=== PATIENT | female | born 1990 | race African-American/Black ===

== ENCOUNTER 2019-07-25 17:57 | Emergency (ER) | payer OTHER, SELFPAY ==
[2019-07-25 19:01] VITALS: BP 124/85; PULSE 85; RESP 16; TEMP 37.2; O2SAT 98
--- NOTE | 2019-07-25 20:01 | ED.URI ---
HPI - URI/Sore Throat General Chief Complaint: Upper Respiratory Infection Stated Complaint: Sore Throat/Chills Time Seen by Provider: 07/25/19 20:01 Source: patient and RN notes reviewed Mode of arrival: ambulatory Limitations: no limitations History of Present Illness HPI Narrative: 28 year old female who presents to express care with complaints of having severe sore throat since yesterday, states that pain is less today but was 10/10 yesterday. Patient states that she doesn't know if she has had any fever but she has had chills and sweats, admits to some increase in cough and some wheezing does have history of asthma. Patient denies any any productivity of cough or any acute shortness of breath, has taken some Ibuprofen for her discomfort. Patient states that she is concerned she has strep or the flu. MD elicited complaint: cough, sore throat and other (Unknown if fever states has felt hot and cold) Pertinent past history: asthma Onset (ago): day(s) (1) Consistency: constant Severity: moderate Pain scale (0-10): 4 Able to tolerate fluids by mouth: Yes Exacerbating factors: swallowing Relieving factors: nothing Associated symptoms: chills, sore throat and cough Treatments prior to arrival: ibuprofen Related Data Allergies Allergy/AdvReac Type Severity Reaction Status Date / Time Penicillins Allergy Intermediate Swelling Verified 02/22/18 14:01 amoxicillin Allergy Unknown Rash Verified 11/18/18 16:43 Review of Systems Review of Systems: Narrative: CONSTITUTIONAL: Unknown if fever,positive for chills, or sweats. EYES: Denies visual changes, redness, or discharge. ENT: Denies rhinorrhea, congestion, positive sore throat, no otalgia. CARDIOVASCULAR: Denies chest pain, palpitations, or edema. RESPIRATORY:Positive cough denies any acute dyspnea, has history of asthma GASTROINTESTINAL: Denies abdominal pain, nausea, vomiting, or diarrhea. GENITOURINARY: Denies dysuria or hematuria. SKIN: Denies rash or itching. MUSCULOSKELETAL: Denies back pain, joint pain, or myalgia. NEUROLOGIC: Denies headache, numbness, or weakness. PSYCHIATRIC: Denies anxiety or depression. All systems reviewed & are unremarkable except as noted in HPI and below PMFSH Past Medical History Medical History (Updated 08/01/19 @ 21:19 by Heather Fletcher NP) Asthma Surgical History Surgical History (Updated 08/01/19 @ 21:08 by Heather Fletcher NP) Previous section Social History Social History (Updated 08/01/19 @ 21:09 by Heather Fletcher NP) Smoking status: Never smoker Alcohol intake: current Substance use: current Substance use type: marijuana Living arrangements: with family Gender identity (if verbalized by the patient): Female Comments At time of signature, agree with nursing past medical, surgical, social history. There is no relevant family history pertinent to the presenting complaint Exam Narrative: Exam Narrative: GENERAL: Well-appearing, well-nourished, and in no acute distress. HEAD: Normocephalic, atraumatic. EYES: PERRLA and EOMI. ENT: Nares clear, no rhinorrhea or epistaxis. Mucous membranes moist.TM's normal with good light reflex, mild redness to throat with no lesion or exudate, mild tonsil enlargement NECK: Supple.no lymphadenopathy CHEST: scattered wheezes on auscultation. No respiratory distress.SAO2 98% on room air. HEART: Regular rate and rhythm. No murmur heard. Normal peripheral pulses. ABDOMEN: Soft, nontender, nondistended, normal active bowel sounds. EXTREMITIES: Normal range of motion. No edema. SKIN: Warm, dry, no rash. NEURO: No focal deficits. Alert and oriented x3. Course Vital Signs Vital signs: Vital Signs Temperature 37.2 C 07/25/19 19:01 Pulse Rate 85 07/25/19 19:01 Respiratory Rate 16 07/25/19 19:01 Blood Pressure 124/85 07/25/19 19:01 Pulse Oximetry 98 07/25/19 19:01 Temperature 37.2 C 07/25/19 19:01 Pulse Rate 85 07/25/19 19:01 Respiratory Rate 16
== END 2019-07-25 20:20 | disposition home or self-care (01) ==
PROVIDERS: Emergency Provider Registered Nurse
DX: J06.9 Acute upper respiratory infection, unspecified (principal); J02.9 Acute pharyngitis, unspecified; J45.909 Unspecified asthma, uncomplicated
CPT/HCPCS: 87081; 87804; 87880; 99213; G0463

== ENCOUNTER 2020-07-23 13:31 | Outpatient (CLI) | payer OTHER, SELFPAY ==
[2020-07-23 14:15] LABS: Basophils Percent Auto 0.2 % (0.2-1.2); Eosinophils Absolute Auto 0.2 K/mm3 (0-0.3); Eosinophils Percent Auto 1.1 % (0-4.4); Hematocrit 33.8 % (37.0-47.0); Immature Granulocyte Absolute 0.08 K/mm3 (0.00-0.031); Immature Granulocyte Percent A 0.6 % (0-0.5); Lymphocytes Absolute Auto 2.39 K/mm3 (0.9-3.2); Mean Corpuscular HGB Conc 32.5 g/dl (32-36); Mean Corpuscular Hemoglobin 26.7 pg (26-34); Mean Platelet Volume 8.8 fl (7.4-10.4); Monocytes Absolute Auto 0.8 K/mm3 (0.1-0.6); Monocytes Percent Auto 6.1 % (2.6-8.5); Neutrophils Absolute Auto 9.8 K/mm3 (1.3-6.7); Platelet Count Result 281 k/mm3 (150-375); Red Blood Count 4.12 M/mm3 (4.2-5.4); Red Cell Distribution Width 14.2 % (11.5-14.5); White Blood Count 13.3 K/mm3 (4.5-10.0)
[2020-07-23 14:19] LABS: Add Urine Microscopic? YES; Appearance Urine Cloudy (Clear); Bacteria Urine 1+ /hpf; Bilirubin Urine Negative (Negative); Blood Urine Negative (Negative); Color Urine Yellow (Yellow); Glucose Urine UA Negative (Negative); Ketones Urine Negative (Negative); Leukocyte Esterase Ur 3+ LEU/UL (NEGATIVE); Mucus Urine Heavy /lpf; Nitrate Urine Negative (Negative); Protein Urine 1+ mg/dL (Negative); Specific Grav Ur 1.019 (1.001-1.035); Squamous Epithelial Cell Urine Many /hpf (Few); WBC Urine 31-50 /hpf (0-3)
[2020-07-23 15:03] LABS: Thyroid Stimulating Hormone 0.483 uIU/mL (0.465-4.680)
[2020-07-23 15:13] LABS: HIV 1/2 Ab P24 Ag Result Negative (Negative)
[2020-07-23 15:21] LABS: Vitamin D 25 Hydroxy 17.2 ng/mL
[2020-07-23 15:41] LABS: Hepatitis B Surface Antigen Negative (Negative); Rubella IgG Antibody 66.3 IU/ML
[2020-07-23 15:55] LABS: Hepatitis C Virus Antibody Negative (Negative)
[2020-07-24 06:54] LABS: Rapid Plasma Reagin Non-Reactive (NonReactive)
[2020-07-27 08:17] LABS: Hemoglobin 10.8 g/dL (11.7-15.5); MCH 26.8 pg (27.0-33.0); MCV 81.9 FL (80.0-100.0); RDW 14.4 % (11.0-15.0); Red Blood Cell Count 4.03 Mill/uL (3.80-5.10)
== END 2020-07-23 13:32 | disposition home or self-care (01) ==
LOC: ANHLAB 13:33
PROVIDERS: Visit Provider Student in an Organized Health Care Education/Training Program
DX: Z34.91 Encounter for supervision of normal pregnancy, unspecified, first trimester (principal); Z3A.00 Weeks of gestation of pregnancy not specified
CPT/HCPCS: 36415; 81001; 82306; 83021; 84443; 85025; 86592; 86703; 86762; 86787; 86803; 86850; 86900; 86901; 87077; 87086; 87088; 87186; 87340; G0432

== ENCOUNTER 2020-10-20 08:54 | Outpatient (CLI) | payer OTHER, SELFPAY ==
--- NOTE | 2020-10-20 | ECG_ITS ---
Measurements Intervals Lewis Rate: 95 P: 73 UT: 136 QRS: 74 QRSD: 72 T: 52 QT: 344 QTc: 434 Interpretive Statements SINUS RHYTHM BASELINE ARTIFACT- I, II, III, AVR, AVL NORMAL ECG Electronically Signed On 10-20-2020 11:13:28 CDT by Masoud Pineda D.O.
[2020-10-20 10:20] LABS: Basophils Percent Auto 0.3 % (0.2-1.2); Eosinophils Absolute Auto 0.2 K/mm3 (0-0.3); Eosinophils Percent Auto 1.2 % (0-4.4); Hematocrit 30.3 % (37.0-47.0); Hemoglobin 9.7 g/dL (12.0-15.0); Immature Granulocyte Absolute 0.65 K/mm3 (0.00-0.031); Immature Granulocyte Percent A 4.4 % (0-0.5); Lymphocytes Absolute Auto 2.23 K/mm3 (0.9-3.2); Mean Corpuscular Hemoglobin 26.7 pg (26-34); Mean Corpuscular Volume 83.5 fl (80-100); Mean Platelet Volume 8.7 fl (7.4-10.4); Monocytes Absolute Auto 1.1 K/mm3 (0.1-0.6); Monocytes Percent Auto 7.7 % (2.6-8.5); Neutrophils Absolute Auto 10.6 K/mm3 (1.3-6.7); Neutrophils Percent Auto 71.4 % (45.5-73.1); Platelet Count Result 235 k/mm3 (150-375); Red Blood Count 3.63 M/mm3 (4.2-5.4); Red Cell Distribution Width 13.4 % (11.5-14.5); White Blood Count 14.9 K/mm3 (4.5-10.0)
[2020-10-20 10:31] LABS: Glucose 1 Hour PP 50gm Dose 148 mg/dL
[2020-10-20 12:07] LABS: SARS-CoV-2 IgG Non-Reactive (NonReactive)
== END 2020-10-20 08:55 | disposition home or self-care (01) ==
PROVIDERS: Visit Provider Student in an Organized Health Care Education/Training Program
DX: Z34.93 Encounter for supervision of normal pregnancy, unspecified, third trimester (principal); R43.0 Anosmia; R00.2 Palpitations
CPT/HCPCS: 36415; 82947; 85025; 86769; 93005

== ENCOUNTER 2020-10-23 21:22 | Observation (INO) | payer OTHER, SELFPAY ==
[2020-10-23] VITALS (29 sets, daily range): BP systolic 106–113; BP diastolic 56–64; PULSE 84–131; RESP 18; TEMP 36.9; O2SAT 76–100; BMI 26.4
[2020-10-23] MEDS: ONDANSETRON HCL ODT 4 MG TABLET 8 MG PO (22:08)
[2020-10-23] MEDS: ACETAMINOPHEN 500 MG TABLET 1000 MG PO (22:16)
[2020-10-23] MEDS: LACTATED RINGERS 1,000 ML 999 ML IV CONT (22:27)
--- NOTE | 2020-10-23 23:41 | OBADM ---
This patient, Carlos Arrington, admitted to the OB room OB Post 116 for observation. Patient/family oriented to hospital policies and general routines including ID bracelet, bed and alarms, visiting hours, pain management, procedures, bathroom and other care routines, personal items, smoking policy, room service/diet, and visiting hours. Patient/Family are encouraged to report perceived risks to care and to ask questions if they do not understand what they are told or what they should do.
--- NOTE | 2020-11-18 12:50 | PM.OBTRLD ---
OB - Triage/Final Diagnosis Visit Information Comments/Additional reasons for admission: I have assessed the risk for this patient, Carlos Arrington, and determined that she would benefit from observation care. Final Diagnosis (1) Vomiting during , antepartum: Code(s): O21.9 - Vomiting of , unspecified Status: Acute
== END 2020-10-23 23:50 | disposition home or self-care (01) ==
PROVIDERS: Admitting Provider Student in an Organized Health Care Education/Training Program; Visit Provider Student in an Organized Health Care Education/Training Program
DX: O21.0 Mild hyperemesis gravidarum (principal); Z3A.27 27 weeks gestation of pregnancy
CPT/HCPCS: A9270; G0378; G0379; J7120

== ENCOUNTER 2020-12-30 17:39 | Observation (INO) | payer OTHER, SELFPAY ==
[2020-12-30] VITALS (12 sets, daily range): BP systolic 115–167; BP diastolic 62–150; PULSE 86–113
[2020-12-30 20:41] LABS: Glucose Point of Care 99 mg/dl (65-105)
--- NOTE | 2020-12-30 22:45 | PM.IMHP ---
H&P: HPI History of Present Illness Date/Time: 12/30/20 22:45 The patient is a 30yo LMP 03/12/20 currently 37w2d gestation with SURESH 01/18/21. The patient is dated by US on 06/10/20 at 8w gestation. Patient presents to L&D for antepartum admission for noncompliance and abnormal glucose challenge test. Patient has a history of poorly controlled insulin dependent GDM in a previous . During current , her 1 hour GCT was completed on 10/20/20 and was abnormally elevated at 148. Since then and despite several conversations regarding risks of undiagnosed and uncontrolled GDM, patient has been advised numerous times to complete diagnostic GDM testing and has failed to comply on an outpatient basis. Recommendation was made to admit patient to antepartum service for glycemic monitoring and 3 hr glucose tolerance testing. In general, patient reports feeling well today. Reports occasional contractions. Denies any vaginal bleeding or leakage of fluid. Reports good movement. Chief Complaint: Noncompliance Abnormal glucose testing Review of Systems Review of Systems: All systems reviewed & are unremarkable except as noted in HPI and below Constitutional: Constitutional: Reports as per HPI, Reports no additional constitutional complaints, Denies chills, Denies fever(s), Denies headache(s) and Denies night sweats Eyes: Eyes: Reports as per HPI and Reports no additional eye complaints ENT: Reports system reviewed and no additional complaints, except as documented, Reports as per HPI, Reports Normal hearing present and Denies headache(s) Cardiovascular: Cardiovascular: Reports as per HPI, Reports no additional cardiovascular complaints, Denies chest pain and Denies dyspnea Respiratory: Respiratory: Reports as per HPI, Reports no additional respiratory complaints, Denies cough and Denies dyspnea Gastrointestinal: Gastrointestinal: Reports as per HPI, Reports no additional gastrointestinal complaints, Denies abdominal pain, Denies change in bowel habits, Denies change in stool character, Denies nausea and Denies vomiting Genitourinary: Genitourinary: Reports no additional female genitourinary complaints, Reports as per HPI, Denies abnormal vaginal bleeding, Denies genital lesions, Denies hot flashes, Denies dyspareunia, Denies pelvic pain, Denies sexual dysfunction, Denies urinary incontinence, Denies vaginal discharge, Denies vaginal dryness and Denies vaginal odor Musculoskeletal: Musculoskeletal: Reports no additional musculoskeletal complaints and Reports as per HPI Integumentary/Breasts: Skin/Breast: Reports system reviewed and no additional complaints, except as docu, Reports as per HPI, Denies breast pain and Denies nipple discharge Neurologic: Reports system reviewed and no additional complaints, except as documented, Reports as per HPI, Reports Normal hearing present and Denies headache(s) Psychiatric: Psychiatric: Reports no additional psychiatric complaints, Reports as per HPI, Denies anxiety and Denies depression Endocrine: Endocrine: Reports no additional endocrine complaints and Reports as per HPI Hematologic/Lymphatic: Hematologic/Lymphatic: Reports no additional hematologic/lymphatic complaints and Reports as per HPI Allergic/Immunologic: Allergic/Immunologic: Reports no additional allergic/immunologic complaints and Reports as per HPI PMFSH Past Medical History Medical History Asthma History of trichomoniasis Surgical History Surgical History Previous section x1 Family History Family History Father Hypertension Mother Hypertension Social History Social History Smoking status: Never smoker Alcohol intake: current Substance use: current Substance use type: marijuana Gender identity (if ve
[2020-12-31 05:37] LABS: Glucose Point of Care 101 mg/dl (65-105)
[2020-12-31 07:34] LABS: Basophils Absolute Auto 0.1 K/mm3 (0.0-0.1); Basophils Percent Auto 0.5 % (0.2-1.2); Eosinophils Absolute Auto 0.2 K/mm3 (0-0.3); Eosinophils Percent Auto 1.5 % (0-4.4); Hematocrit 29.1 % (37.0-47.0); Immature Granulocyte Absolute 0.37 K/mm3 (0.00-0.031); Immature Granulocyte Percent A 2.5 % (0-0.5); Lymphocytes Absolute Auto 2.43 K/mm3 (0.9-3.2); Lymphocytes Percent Auto 16.5 % (18.3-44.2); Mean Corpuscular HGB Conc 30.9 g/dl (32-36); Mean Corpuscular Hemoglobin 23.4 pg (26-34); Mean Corpuscular Volume 75.8 fl (80-100); Mean Platelet Volume 9.1 fl (7.4-10.4); Monocytes Absolute Auto 1.5 K/mm3 (0.1-0.6); Monocytes Percent Auto 10.4 % (2.6-8.5); Neutrophils Absolute Auto 10.2 K/mm3 (1.3-6.7); Neutrophils Percent Auto 68.6 % (45.5-73.1); Nucleated Red Blood Cells Perc 0.3 % (0.0-0.2); Platelet Count Result 266 k/mm3 (150-375); Red Blood Count 3.84 M/mm3 (4.2-5.4); Red Cell Distribution Width 15.6 % (11.5-14.5); White Blood Count 14.8 K/mm3 (4.5-10.0)
[2020-12-31 07:41] LABS: Glucose Fasting 87 mg/dL
--- NOTE | 2020-12-31 07:50 | PC.NURSE ---
0750--pt. finished 100gm solution for 3hr GTT.
[2020-12-31 07:52] VITALS: BMI 29.9
[2020-12-31 08:22] LABS: HIV 1/2 Ab P24 Ag Result Negative (Negative)
[2020-12-31 09:14] LABS: Glucose 1 Hour 160 mg/dL
[2020-12-31 10:13] LABS: Glucose 2 Hour 127 mg/dL
[2020-12-31 11:08] LABS: Glucose 3 Hour 126 mg/dL
--- NOTE | 2020-12-31 11:17 | PC.NURSE ---
1117--Report of 3hr GTT results to Dr. Steele. Orders to do NST and then can be discharged home.
[2020-12-31 11:28] VITALS: BP 117/64; PULSE 91
[2020-12-31 12:00] VITALS: BP 117/64; PULSE 95
--- NOTE | 2020-12-31 14:14 | PC.NURSE ---
1315--Late decel that had been overlooked while pt. was here was noted after pt. had been discharged home. Phone call to Dr. Steele re: decel and pt. already gone. Strip reviewed per Dr. Steele, orders to call pt. and have her return to hospital for further monitoring and BPP.
--- NOTE | 2020-12-31 14:17 | PC.NURSE ---
1320--Phone call placed to the number we have on file, no answer and automatic recording stating that the phone cannot receive call at this time.
--- NOTE | 2020-12-31 14:18 | PC.NURSE ---
8052--Phone call to Dr. Steele re: inability to reach pt. Orders to continue to try to reach pt.
--- NOTE | 2020-12-31 14:20 | PC.NURSE ---
7723--Phone call to MD office seeking alternate phone number for pt. They state they have no other number on file.
--- NOTE | 2020-12-31 14:21 | PC.NURSE ---
1400--Attempt to reach pt. again, recording that phone cannot receive calls at this time.
--- NOTE | 2020-12-31 14:39 | PC.NURSE ---
1338--Attempt to reach pt. unsuccessful at this time.
--- NOTE | 2020-12-31 18:41 | PC.NURSE ---
1839--Attempt to reach patient via phone, unable to reach or leave message at this time.
--- NOTE | 2021-01-14 14:28 | P.PNOB_ITS ---
OB - Triage/Final Diagnosis Visit Information Comments/Additional reasons for admission: I have assessed the risk for this patient, Carlos Arrington, and determined that she would benefit from observation care. Evaluation Laboratory results: Laboratory Tests 12/30/20 12/31/20 12/31/20 20:37 05:31 07:18 WBC 14.8 H RBC 3.84 L Hgb 9.0 L Hct 29.1 L MCV 75.8 L MCH 23.4 L MCHC 30.9 L RDW 15.6 H Plt Count 266 MPV 9.1 Immature Gran % (Auto) 2.5 H Neut % (Auto) 68.6 Lymph % (Auto) 16.5 L [place] % (Auto) 10.4 H Eos % (Auto) 1.5 Baso % (Auto) 0.5 Lymph # (Auto) 2.43 [place] # (Auto) 1.5 H Eos # (Auto) 0.2 Baso # (Auto) 0.1 Abs Immat Gran (auto) 0.37 H Absolute Neuts (auto) 10.2 H Absolute Nucleated RBC 0.0 Nucleated RBC % 0.3 H POC Capillary Glucose 99 101 Glucose Tolerance HIV 1&2 Ab/P24 Ag 4thGn 12/31/20 12/31/20 07:19 07:20 WBC RBC Hgb Hct MCV MCH MCHC RDW Plt Count MPV Immature Gran % (Auto) Neut % (Auto) Lymph % (Auto) [place] % (Auto) Eos % (Auto) Baso % (Auto) Lymph # (Auto) [place] # (Auto) Eos # (Auto) Baso # (Auto) Abs Immat Gran (auto) Absolute Neuts (auto) Absolute Nucleated RBC Nucleated RBC % POC Capillary Glucose Glucose Tolerance HIV 1&2 Ab/P24 Ag 4thGn Negative Final Diagnosis (1) Abnormal glucose tolerance test: Code(s): R73.09 - Other abnormal glucose Status: Acute
== END 2020-12-31 11:58 | disposition home or self-care (01) ==
PROVIDERS: Admitting Provider Student in an Organized Health Care Education/Training Program; Visit Provider Student in an Organized Health Care Education/Training Program
DX: O99.810 Abnormal glucose complicating pregnancy (principal); Z3A.37 37 weeks gestation of pregnancy
CPT/HCPCS: 36415; 59025; 82948; 82951; 82952; 85025; 86703; G0378; G0379; G0432

== ENCOUNTER 2021-01-07 04:29 | Inpatient (IN) | payer OTHER, SELFPAY ==
[2021-01-07] VITALS (59 sets, daily range): BP systolic 100–133; BP diastolic 58–95; PULSE 63–107; RESP 16–18; TEMP 36.1–36.6; O2SAT 83–100
--- NOTE | 2021-01-07 05:29 | OBADM ---
This patient, Carlos Arrington, admitted to the OB room Labor/Delivery/Recovery 120 for observation. Patient/family oriented to hospital policies and general routines including ID bracelet, bed and alarms, visiting hours, pain management, procedures, bathroom and other care routines, personal items, smoking policy, room service/diet, and visiting hours. Patient/Family are encouraged to report perceived risks to care and to ask questions if they do not understand what they are told or what they should do.
--- NOTE | 2021-01-07 05:32 | PM.IMHP ---
H&P: HPI History of Present Illness Date/Time: 01/07/21 05:32 The patient is a 30yo LMP 03/12/20 currently 38w3d gestation with SURESH 01/18/21. The patient is dated by US on 06/10/20 at 8w gestation. Patient presented to L&D with complaints of contraction and leakage of fluid. Patient reports onset of contractions at approx. 1:00 a.m. Reports increase in frequency and intensity since then. During evaluation, patient was not ruptured, however, was noted to be titus frequently and likely in labor. Denies any vaginal bleeding. Reports good movement. She has a history of previous section x 1. She declines TOLAC and desires repeat section. Chief Complaint: Previous C/S x 1 Labor Review of Systems Review of Systems: All systems reviewed & are unremarkable except as noted in HPI and below Constitutional: Constitutional: Reports as per HPI, Reports no additional constitutional complaints, Denies chills, Denies fever(s), Denies headache(s) and Denies night sweats Eyes: Eyes: Reports as per HPI and Reports no additional eye complaints ENT: Reports system reviewed and no additional complaints, except as documented, Reports as per HPI, Reports Normal hearing present and Denies headache(s) Cardiovascular: Cardiovascular: Reports as per HPI, Reports no additional cardiovascular complaints, Denies chest pain and Denies dyspnea Respiratory: Respiratory: Reports as per HPI, Reports no additional respiratory complaints, Denies cough and Denies dyspnea Gastrointestinal: Gastrointestinal: Reports as per HPI, Reports no additional gastrointestinal complaints, Denies abdominal pain, Denies change in bowel habits, Denies change in stool character, Denies nausea and Denies vomiting Genitourinary: Genitourinary: Reports no additional female genitourinary complaints, Reports as per HPI, Denies abnormal vaginal bleeding, Denies genital lesions, Denies hot flashes, Denies dyspareunia, Denies pelvic pain, Denies sexual dysfunction, Denies urinary incontinence, Denies vaginal discharge, Denies vaginal dryness and Denies vaginal odor Musculoskeletal: Musculoskeletal: Reports no additional musculoskeletal complaints and Reports as per HPI Integumentary/Breasts: Skin/Breast: Reports system reviewed and no additional complaints, except as docu, Reports as per HPI, Denies breast pain and Denies nipple discharge Neurologic: Reports system reviewed and no additional complaints, except as documented, Reports as per HPI, Reports Normal hearing present and Denies headache(s) Psychiatric: Psychiatric: Reports no additional psychiatric complaints, Reports as per HPI, Denies anxiety and Denies depression Endocrine: Endocrine: Reports no additional endocrine complaints and Reports as per HPI Hematologic/Lymphatic: Hematologic/Lymphatic: Reports no additional hematologic/lymphatic complaints and Reports as per HPI Allergic/Immunologic: Allergic/Immunologic: Reports no additional allergic/immunologic complaints and Reports as per HPI PMFSH Past Medical History Medical History Asthma History of trichomoniasis Surgical History Surgical History Previous section x1 Family History Family History Father Hypertension Mother Hypertension Social History Social History Smoking status: Never smoker Alcohol intake: current Substance use: former Substance use type: marijuana Gender identity (if verbalized by the patient): Female Spiritual care concerns: No Meds Home Medications and Allergies Home Medications Medication Instructions Recorded Confirmed Type prenat.vits,kevin,inf-csrd-jqpik 1 tablet PO DAILY 06/24/20 01/07/21 History ferrous sulfate 325 mg (65 mg 325 mg PO DAILY #90 tablet 10/21/20 01/07/21 Rx
[2021-01-07] MEDS: LACTATED RINGERS 1,000 ML 125 ML IV CONT ×2 (07:05→08:22)
[2021-01-07 07:17] LABS: Basophils Absolute Auto 0.1 K/mm3 (0.0-0.1); Basophils Percent Auto 0.4 % (0.2-1.2); Eosinophils Absolute Auto 0.2 K/mm3 (0-0.3); Eosinophils Percent Auto 1.3 % (0-4.4); Hematocrit 29.7 % (37.0-47.0); Hemoglobin 9.2 g/dL (12.0-15.0); Immature Granulocyte Absolute 0.54 K/mm3 (0.00-0.031); Immature Granulocyte Percent A 3.2 % (0-0.5); Lymphocytes Absolute Auto 2.46 K/mm3 (0.9-3.2); Lymphocytes Percent Auto 14.6 % (18.3-44.2); Mean Corpuscular Hemoglobin 23.1 pg (26-34); Mean Corpuscular Volume 74.4 fl (80-100); Mean Platelet Volume 9.4 fl (7.4-10.4); Monocytes Absolute Auto 1.8 K/mm3 (0.1-0.6); Monocytes Percent Auto 10.7 % (2.6-8.5); Neutrophils Absolute Auto 11.8 K/mm3 (1.3-6.7); Neutrophils Percent Auto 69.8 % (45.5-73.1); Nucleated Red Blood Cells Absolute Auto 0.1 K/mm3 (0.0-0.012); Nucleated Red Blood Cells Perc 0.5 % (0.0-0.2); Platelet Count Result 283 k/mm3 (150-375); Red Blood Count 3.99 M/mm3 (4.2-5.4); Red Cell Distribution Width 15.6 % (11.5-14.5); White Blood Count 16.9 K/mm3 (4.5-10.0)
--- NOTE | 2021-01-07 07:31 | WPDANESEPPF ---
Anes - Initial Pre Proc Eval Date/Time: 01/07/21 07:31 Surgeon: Renae Steele MD Pre Op Diagnosis: R/O ROM Patient Data Age: 30 Gender: F Height: 1.52 m Weight: Last Vital Signs Temp 36.6 C 01/07/21 04:50 Pulse 96 01/07/21 06:15 Resp 16 01/07/21 04:50 BP 120/80 01/07/21 06:15 Pulse Ox 100 01/07/21 06:16 Allergies Allergy/AdvReac Type Severity Reaction Status Date / Time Penicillins Allergy Intermediate Swelling Verified 12/30/20 14:51 amoxicillin Allergy Unknown Rash Verified 12/30/20 14:51 Home Medications Medication Instructions Recorded Confirmed Type prenat.vits,kevin,jxl-[id number]-xiosw 1 tablet PO DAILY 06/24/20 01/07/21 History ferrous sulfate 325 mg (65 mg 325 mg PO DAILY #90 tablet 10/21/20 01/07/21 Rx iron) tablet Laboratory Tests 01/07/21 01/07/21 07:08 07:08 WBC 16.9 K/mm3 H K/mm3 (4.5-10.0) RBC 3.99 M/mm3 L M/mm3 (4.2-5.4) Hgb 9.2 g/dL L g/dL (12.0-15.0) Hct 29.7 % L % (37.0-47.0) MCV 74.4 fl L fl (80-100) MCH 23.1 pg L pg (26-34) MCHC 31.0 g/dl L g/dl (32-36) RDW 15.6 % H % (11.5-14.5) Plt Count 283 k/mm3 k/mm3 (150-375) MPV 9.4 fl fl (7.4-10.4) Immature Gran % (Auto) 3.2 % H % (0-0.5) Neut % (Auto) 69.8 % % (45.5-73.1) Lymph % (Auto) 14.6 % L % (18.3-44.2) Baker % (Auto) 10.7 % H % (2.6-8.5) Eos % (Auto) 1.3 % % (0-4.4) Baso % (Auto) 0.4 % % (0.2-1.2) Lymph # (Auto) 2.46 K/mm3 K/mm3 (0.9-3.2) Baker # (Auto) 1.8 K/mm3 H K/mm3 (0.1-0.6) Eos # (Auto) 0.2 K/mm3 K/mm3 (0-0.3) Baso # (Auto) 0.1 K/mm3 K/mm3 (0.0-0.1) Abs Immat Gran (auto) 0.54 K/mm3 H K/mm3 (0.00-0.031) Absolute Neuts (auto) 11.8 K/mm3 H K/mm3 (1.3-6.7) Absolute Nucleated RBC 0.1 K/mm3 H K/mm3 (0.0-0.012) Nucleated RBC % 0.5 % H % (0.0-0.2) RPR Pending Patient hx anesthesia problems: none Family hx anesthesia problems: none PMFSH Past Medical History Medical History Asthma History of trichomoniasis Surgical History Surgical History Previous section x1 Family History Family History Father Hypertension Mother Hypertension Social History Social History Smoking status: Never smoker Alcohol intake: current Substance use: former Substance use type: marijuana Gender identity (if verbalized by the patient): Female Spiritual care concerns: No Anes - Eval Final PreProcedure Day of Procedure 01/07/21 07:31 Patient weight: normal Heart: regular rate and rhythm Lungs: clear to auscultation Airway: Mallampati scale class II Neurological: alert and oriented Last oral intake: >/= 8 hours ASA classification: II Emergent: no Anesthetic plan: proceed Anesthesia type and monitoring: regional spinal and standard monitoring Informed Consent: The patient's anesthetic plan and its attendant risks and benefits were discussed with the patient/family/POA. Questions were solicited and answers provided to the satisfaction of the patient/family/POA.
[2021-01-07 08:04] LABS: Amphetamine Screen Urine Negative (Negative); Barbiturate Screen Urine Negative (Negative); Benzodiazepines Screen Urine Negative (Negative); Cannabinoid Screen Urine Positive (Negative); Cocaine Screen Urine Negative (Negative); Methadone Screen Urine Negative (Negative); Opiate Screen Urine Negative (Negative); Phencyclidine Screen Urine Negative (Negative)
--- NOTE | 2021-01-07 08:35 | WPDHPUPDATE1 ---
History and Physical Update Update Date/Time: 01/07/21 08:35 History and Physical has been reviewed, including an updated exam of the patient. There are NO changes in the patient's condition. Risks, benefits, and alternatives have been discussed and questions answered. Patient agrees to proceed with procedure.
[2021-01-07] MEDS: ceFAZolin 2 GM/D5W 50 ML 2 GM/50 ML BAG IVPB (09:04)
[2021-01-07 09:29] LABS: Rapid Plasma Reagin Non-Reactive (NonReactive)
[2021-01-07] MEDS: KETOROLAC 30 MG/ML VIAL (*BKC) IV PUSH ×3 (09:40→22:37)
--- NOTE | 2021-01-07 10:23 | PM.OBPRVD ---
OB - Delivery Note Procedure Delivery date: 01/07/21 Procedure: Procedures Operation Date: 01/07/21 09:00 <No data on this case meets the specified criteria> events: Previous Delivery monitor: external FHT and external uterine Route of delivery: Specimen: Yes (cord blood and cord gases) Quantitative Blood Loss (ml): 610 Anesthesia type: Spinal Disposition: PACU Complications: No immediate complications Baby Date of : 01/07/21 Time of : 09:35 Weeks of gestation at delivery: 38 (38.3) Infant gender: Male Weight (pounds): 7 Weight (ounces): 13 presentation: vertex Placenta delivery description: Manual Removal cord vessel description: 3 Vessels score one minute: 9 score five minutes: 9
--- NOTE | 2021-01-07 10:26 | W.PM.PROC2 ---
Procedure Note - Detailed Date of Procedure 01/07/21 Pre-op Diagnosis IUP at 38w3d gestation Previous section x 1 Active labor Declines TOLAC Post-op Diagnosis same Procedure Performed Repeat low transverse section via Pfannenstiel Surgeon Renae Steele MD Personal Property Appraiser Ciera Vera Anesthesia spinal Findings Live male in cephalic presentation, apgars 9/9, weighing 7 lbs. 13 oz., meconium stained amniotic fluid, normal appearing uterus, ovaries, and fallopian tubes bilaterally Description of Procedure The patient was taken to the operating room, where she self-transferred to the operating room table. Spinal anesthesia was administered and found to be adequate. The patient was placed in dorsal supine position with a leftward tilt. She was prepped and draped in the usual sterile fashion. Spinal anesthesia was tested and found to be adequate. A Pfannenstiel skin incision was made with a scalpel and carried through to underlying layer of fascia with the Bovie. The fascia was incised in the midline and the incision was extended laterally with the use of forceps and Martinez scissors. The inferior aspect of the fascial incision was grasped with James clamps, elevated, and the underlying rectus muscle were dissected off with Martinez scissors. Attention was then turned to the superior aspect of the fascial incision, which in a similar manner, was grasped with James clamps, elevated, and the underlying rectus muscles were also dissected off with Martinez scissors. The rectus muscles were in the midline and the peritoneal cavity was entered bluntly. This incision was extended superiorly and inferiorly with good visualization of the bladder and care was taken to avoid blood vessels. A bladder blade was inserted. A low-transverse uterine incision was made with a scalpel. This incision was extended laterally with bandage scissors. Amniotomy was performed. Meconium stained amniotic fluid was noted. The 's head was grasped and gently guided to the level of the uterine incision. The 's head was delivered easily and atraumatically without difficulty followed by the neck, shoulders, and rest of body with gentle fundal pressure. The 's nose and mouth were suctioned bulb suction. The was crying spontaneously. The cord was clamped and cut and the infant was handed off to waiting nursing staff. A segment of cord was collected for cord gases. Cord blood was also collected. The placenta was then delivered manually with gentle uterine massage. Uterus was exteriorized and cleared of all clots and debris. The uterine incision was reapproximated with 0 Vicryl in a running, locked fashion. A second imbricating layer using 0 Monocryl performed. Excellent hemostasis was noted. On inspection, the uterus, ovaries, and fallopian tubes appeared to be normal bilaterally. The uterus was replaced into the abdominal cavity. The gutters were cleared of all clots and debris. The uterine incision was inspected again and noted to be hemostatic. Hemaderm was applied across the uterine incision. Interceed was also applied across the uterine incision and anterior surface of the uterus. The fascia was then closed with 0 Vicryl in a running fashion. The subcutaneous layer was irrigated with water. Pinpoint areas of bleeding were made hemostatic with Bovie. The subcutaneous layer was reapproximated with 2-0 plain and the skin was then closed with 4-0 Monocryl in a subcuticular fashion. The skin was cleansed and dried. Dermaflex skin adhesive was applied across the incision. A pressure dressing was also applied. The remainder the patient was cleansed and dried. The patient was transferred to the recovery room in stable condition. All sponge, lap, and instrument counts were correct at the end of the procedure x3. The patient tolerated the procedure well. Estimated Blood Loss 610 IV Fluids 1,400 Urine Output 150 Drains Yes (lezama catheter with 150cc clear urine at e
--- NOTE | 2021-01-07 12:39 | OBPPTRN ---
Patient transferred to post room # 292 via stretcher. Support person present and in open crib. Oriented to unit, room, information board, rooming in, admission packet and security measures. PT transferred to bed via maxi air without difficulty. PT received instructions per one to one discussion, mom baby care guide and demonstration. No barriers to learning identified and pt received instructions as the only recipient. Patient verbalizes understanding.
[2021-01-07] MEDS: OXYTOCIN 30 UNITS/NS 500 ML 30 UNITS/500 ML BAG 125 UNITS IV CONT (13:00)
[2021-01-07] MEDS: LANOLIN (LANSINOH) 7.5 GM CREAM 1 APPLIC TOPICAL (15:57)
[2021-01-07] MEDS: POLYSACCHARIDE IRON COMPLEX 150 MG CAPSULE PO (15:58)
[2021-01-07] MEDS: SIMETHICONE 80 MG TAB.CHEW PO (15:58)
[2021-01-07] MEDS: DOCUSATE SODIUM 100 MG CAPSULE PO (15:58)
[2021-01-07] MEDS: oxyCODONE/ACETAMINOPHEN (*CRX) 5-325 MG TABLET 1 TABLET PO (16:16)
[2021-01-07] MEDS: diphenhydrAMINE HCl INJ 50 MG/ML VIAL 12.5 MG IV PUSH (18:24)
[2021-01-07] MEDS: DEXTROSE 5%/0.45% SOD CHL 1,000 ML 125 ML IV CONT (19:25)
[2021-01-07] MEDS: oxyCODONE/ACETAMINOPHEN (*CRX) 5-325 MG TABLET 2 TABLET PO (22:38)
[2021-01-08] MEDS: diphenhydrAMINE HCl INJ 50 MG/ML VIAL 12.5 MG IV PUSH (01:17)
[2021-01-08 01:23] VITALS: BP 128/70; PULSE 83; RESP 17; TEMP 36.2; O2SAT 100
[2021-01-08] MEDS: KETOROLAC 30 MG/ML VIAL (*BKC) IV PUSH ×2 (04:41→11:59)
[2021-01-08] MEDS: oxyCODONE/ACETAMINOPHEN (*CRX) 5-325 MG TABLET 2 TABLET PO ×4 (04:43→19:59)
[2021-01-08 04:50] VITALS: BP 114/67; PULSE 89; RESP 14; TEMP 36.5; O2SAT 100
[2021-01-08 05:45] LABS: Basophils Percent Auto 0.2 % (0.2-1.2); Eosinophils Absolute Auto 0.2 K/mm3 (0-0.3); Hematocrit 26.3 % (37.0-47.0); Hemoglobin 8.2 g/dL (12.0-15.0); Immature Granulocyte Absolute 0.23 K/mm3 (0.00-0.031); Immature Granulocyte Percent A 1.3 % (0-0.5); Lymphocytes Absolute Auto 1.79 K/mm3 (0.9-3.2); Lymphocytes Percent Auto 9.8 % (18.3-44.2); Mean Corpuscular HGB Conc 31.2 g/dl (32-36); Mean Corpuscular Hemoglobin 23.2 pg (26-34); Mean Corpuscular Volume 74.5 fl (80-100); Mean Platelet Volume 9.5 fl (7.4-10.4); Monocytes Absolute Auto 2.1 K/mm3 (0.1-0.6); Monocytes Percent Auto 11.5 % (2.6-8.5); Neutrophils Absolute Auto 13.9 K/mm3 (1.3-6.7); Neutrophils Percent Auto 76.2 % (45.5-73.1); Nucleated Red Blood Cells Absolute Auto 0.1 K/mm3 (0.0-0.012); Nucleated Red Blood Cells Perc 0.3 % (0.0-0.2); Platelet Count Result 251 k/mm3 (150-375); Red Blood Count 3.53 M/mm3 (4.2-5.4); Red Cell Distribution Width 15.6 % (11.5-14.5); White Blood Count 18.2 K/mm3 (4.5-10.0)
[2021-01-08 08:00] VITALS: BP 119/70; PULSE 75; RESP 16; TEMP 36.7; O2SAT 97
--- NOTE | 2021-01-08 09:24 | P.PNOB_ITS ---
OB - PN: Subj Subjective Date/time seen: 01/08/21 09:24 Patient doing well this morning. Pain well controlled with medication. Denies any headache, chest pain, shortness of breath, nausea, or vomiting. Tolerating PO diet. Ambulating without difficulty. Voiding well. Passage of minimal flatus. OB - PN: Obj Data Labs CBC & Chem 7: 01/08/21 04:59 Labs: Laboratory Results - last 24 hr 01/07/21 01/07/21 01/08/21 07:08 07:08 04:59 WBC 18.2 H RBC 3.53 L Hgb 8.2 L Hct 26.3 L MCV 74.5 L MCH 23.2 L MCHC 31.2 L RDW 15.6 H Plt Count 251 MPV 9.5 Immature Gran % (Auto) 1.3 H Neut % (Auto) 76.2 H Lymph % (Auto) 9.8 L [place] % (Auto) 11.5 H Eos % (Auto) 1.0 Baso % (Auto) 0.2 Lymph # (Auto) 1.79 [place] # (Auto) 2.1 H Eos # (Auto) 0.2 Baso # (Auto) 0.0 Abs Immat Gran (auto) 0.23 H Absolute Neuts (auto) 13.9 H Absolute Nucleated RBC 0.1 H Nucleated RBC % 0.3 H RPR Non-reactive Blood Type B Positive Antibody Screen Negative OB - PN A/P Assessment and Plan (1) Delivery by section at 37-39 weeks of gestation due to labor: Code(s): O75.82 - Onset (spontaneous) of labor after 37 completed weeks of gestation but before 39 completed weeks gestation, with delivery by (planned) section Status: Acute Assessment and Plan: POD#1 doing well continue routine postoperative care encourage ambulation and use of IS Time Spent With Patient Time: Total time spent is greater than 50% in coordination of care (as documente d) at patient's floor/unit and/or counseling patient: Exam Const: General: cooperative, healthy appearing, comfortable and no acute distress GI: Inspection: non-distended GI Palp: Yes Soft to palpation and Yes Tenderness to palpation present (GI) (appropriately tender) Other: fundus firm just below umbilicus Extrem: Right lower extremity: no edema Left lower extremity: no edema Other: no calf tenderness
--- NOTE | 2021-01-08 10:11 | WPDANLDPN2 ---
Anes-Prog Note L&D Date/Time: 01/08/21 10:11 Comfortable throughout: section Neuraxial method: spinal Epidural/Spinal procedure site: clean & non-tender Neuro status: Neuro function grossly intact. Cardiovascular status: normal Respiratory status: normal Airway patency: baseline Mental status: baseline Post-Op hydration status: normal Vital Signs: Last Vital Signs Temp 98.1 F 01/08/21 08:00 Pulse 75 01/08/21 08:00 Resp 16 01/08/21 08:00 BP 119/70 01/08/21 08:00 Pulse Ox 97 01/08/21 08:00 Pain score (VAS): 06/14 I/O: Intake & Output 01/07/21 01/08/21 01/08/21 23:59 07:59 15:59 Output Total 250 2181 400 Balance -250 -4228 -572 Post-procedural complaints: none Patient feedback: Patient satisfied with anesthetic care.
--- NOTE | 2021-01-08 10:12 | WPDANLDNPN2 ---
Anes-Prog Note L&D-Neuraxial Date/Time: 01/08/21 10:12 Neuraxial medications: intrathecal PF morphine Opiod-related complaints: none Patient feedback: Patient satisfied with post-operative pain management.
[2021-01-08 10:30] VITALS: PULSE 75; RESP 16; O2SAT 97
[2021-01-08] MEDS: POLYSACCHARIDE IRON COMPLEX 150 MG CAPSULE PO ×2 (10:37→15:56)
[2021-01-08] MEDS: SIMETHICONE 80 MG TAB.CHEW PO ×3 (10:37→20:04)
[2021-01-08] MEDS: DOCUSATE SODIUM 100 MG CAPSULE PO ×2 (10:38→15:55)
[2021-01-08] MEDS: MULTIVIT/MIN/PREN/FOL AC/IRON TABLET 1 TAB PO (10:38)
--- NOTE | 2021-01-08 14:15 | PC.NURSE ---
Observed mother is able to independently latch with appropriate positioning/alignment. She denies any nipple discomfort, is feeding as required and waking infant to feed if needed. has had at least 8 effective feedings in the past 24 hours, and is currently meeting outcomes for weight, output, jaundice and feeding frequencies. Mother states she feels confident to continue effective at home. Reviewed transition to breast milk, signs of adequate intake, and engorgement/relief. Instructed to call ICP if intake/output less than required. Reviewed regular medications mother is taking. Information provided per Geena. Reviewed community resources on the [facility] website and in the Mom/Baby guide. Information on outpatient services provided. Mother has no further questions at this time. Assisted mother with a pump thru her insurance.
[2021-01-08] MEDS: IBUPROFEN 600 MG TABLET PO (20:00)
[2021-01-08 20:45] VITALS: BP 126/77; PULSE 84; TEMP 36.6; O2SAT 100
--- NOTE | 2021-01-08 20:45 | PC.NURSE ---
Patient viewed the discharge video Mother & Baby Care, The First Two Weeks online. Patient was given the opportunity and encouraged to ask questions. Patient verbalized understanding of information shared and has been given the mother/baby guide for home reference.
[2021-01-09] MEDS: oxyCODONE/ACETAMINOPHEN (*CRX) 5-325 MG TABLET 2 TABLET PO ×5 (00:24→23:48)
[2021-01-09] MEDS: IBUPROFEN 600 MG TABLET PO ×4 (03:38→23:49)
[2021-01-09 08:00] VITALS: BMI 28.0
[2021-01-09 08:10] VITALS: BP 108/82; PULSE 81; RESP 18; TEMP 36.2; O2SAT 100
[2021-01-09] MEDS: POLYSACCHARIDE IRON COMPLEX 150 MG CAPSULE PO ×2 (09:03→17:42)
[2021-01-09] MEDS: DOCUSATE SODIUM 100 MG CAPSULE PO ×2 (09:03→17:42)
[2021-01-09] MEDS: MULTIVIT/MIN/PREN/FOL AC/IRON TABLET 1 TAB PO (09:03)
[2021-01-09] MEDS: SIMETHICONE 80 MG TAB.CHEW PO (09:10)
--- NOTE | 2021-01-09 10:38 | PM.OBPNVD ---
OB - PN: Subj Subjective Date/time seen: 01/09/21 10:38 Patient doing well. Pain well controlled with medication. Patient denies any headache, chest pain, shortness of breath, nausea, or vomiting. Tolerating regular p.o. diet. Ambulating without difficulty. Voiding well. Passing flatus. Minimal lochia. OB - PN: Obj Data Labs CBC & Chem 7: 01/08/21 04:59 OB - PN A/P Assessment and Plan (1) Delivery by section at 37-39 weeks of gestation due to labor: Code(s): O75.82 - Onset (spontaneous) of labor after 37 completed weeks of gestation but before 39 completed weeks gestation, with delivery by (planned) section Status: Acute Assessment and Plan: PPD#2 Doing well Continue routine postoperative care Encourage ambulation use of IS Anticipate discharge home tomorrow Time Spent With Patient Time: Total time spent is greater than 50% in coordination of care (as documented) at patient's floor/unit and/or counseling patient: Exam Const: General: cooperative, healthy appearing, comfortable and no acute distress GI: Inspection: non-distended GI Palp: Yes Soft to palpation and No Tenderness to palpation present (GI) Other: inc c/d/i Extrem: Right lower extremity: no edema Left lower extremity: no edema Other: no calf tenderness
--- NOTE | 2021-01-09 13:28 | PCCCNOTE ---
Care Coordination met with pt. this morning to discuss discharge planning. Pt.'s current D/C plan is to return home with her parents and daughter. Pt. states she has local family and friend support to assist with her baby. Pt. confirms she has everything she needs to safely bring baby home. Pt. has a car seat for staff to examine. Pt. will continue to breast feed at time of D/C and states she is in the process of applying for WIC. Pt. denies any concerns about discharging home with baby. Pt. denies any prior DCFS cases. Pt. did test positive for Marijuana, she states this was to assist her with the . Baby was not tested. Pt. has been provided resources for new parents. No further need for CC services.
[2021-01-09] MEDS: ONDANSETRON HCL ODT 4 MG TABLET PO (15:20)
[2021-01-09] MEDS: oxyCODONE/ACETAMINOPHEN (*CRX) 5-325 MG TABLET 1 TABLET PO (19:27)
[2021-01-09 19:48] VITALS: BP 127/82; PULSE 77; RESP 18; TEMP 36.7; O2SAT 100
[2021-01-10] MEDS: oxyCODONE/ACETAMINOPHEN (*CRX) 5-325 MG TABLET 2 TABLET PO ×2 (05:19→10:22)
[2021-01-10] MEDS: IBUPROFEN 600 MG TABLET PO (05:19)
[2021-01-10] MEDS: ONDANSETRON HCL ODT 4 MG TABLET PO (06:38)
[2021-01-10 08:06] VITALS: BP 146/79; PULSE 87; RESP 18; TEMP 37; O2SAT 100
--- NOTE | 2021-01-10 08:23 | P.PNOB_ITS ---
OB - PN: Subj Subjective Date/time seen: 01/10/21 08:23 Patient doing well this morning. Pain well controlled medication. Patient denies headache, chest pain, shortness of breath, nausea, or vomiting. Tolerating regular p.o. diet. Ambulating without difficulty. Voiding well. Passing flatus. OB - PN: Obj Data Labs CBC & Chem 7: 01/08/21 04:59 OB - PN A/P Assessment and Plan (1) Delivery by section at 37-39 weeks of gestation due to labor: Code(s): O75.82 - Onset (spontaneous) of labor after 37 completed weeks of gestation but before 39 completed weeks gestation, with delivery by (planned) section Status: Acute Assessment and Plan: POD#3 doing well dc home in stable condition emergency precautions reviewed f/u in office in 2 weeks for postoperative check Time Spent With Patient Time: Total time spent is greater than 50% in coordination of care (as documented) at patient's floor/unit and/or counseling patient: Exam Const: General: cooperative, healthy appearing, comfortable and no acute distr ess GI: Inspection: non-distended GI Palp: Yes Soft to palpation and No Tenderness to palpation present (GI) Other: fundus firm below umbilicus; inc c/d/i Extrem: Right lower extremity: no edema Left lower extremity: no edema Other: no calf tenderness
--- NOTE | 2021-01-10 08:25 | P.DS_ITS ---
DS: Admitting Diagnosis Admitting Diagnosis Previous section Labor OB - DS: Summary OB Procedures : None OB Procedures Intrapartum: OB Procedures: : None Peripartum Data Procedures: Procedures Operation Date: 01/07/21 09:00 Actual Procedure Side Surgeon p Section Renae Steele MD Time Spent with Patient Time attestation: Total time spent providing and/or coordinating discharge services: Discharge Plan Discharge Attending physician on discharge: Renae Steele Discharging Clinician: Renae Steele Anticipated Discharge Date/Time: 01/10/21 08:25 Patient Disposition: Home, Self-Care Activity: may drive after 2 weeks, as tolerated and pelvic rest Diet: regular Discharge Instructions: Call office ([phone]) to schedule the following appointments: 1. Postoperative/wound check in 2 weeks. 2. visit in 4-6 weeks. You may take Ibuprofen 600mg every 6 hours as needed for pain. I have sent a prescription for a stronger pain medication, [place], to your pharmacy. You may take this as prescribed for breakthrough pain (pain that is not controlled with Ibuprofen). No driving for at least two weeks. You also may not drive while taking narcotics. Pain medication may make you constipated. It may be helpful to take an zyvb-[id number] stool softener, such as Colace and/or Senokot, along with the pain medication to help lessen constipation. Call office or go to ED for pain not controlled with medication, headache, chest pain, shortness of breath, fever, chills, persistent nausea or vomiting, severe abdominal pain, heavy vaginal bleeding >2 pads/hour, foul vaginal discharge or odor, any redness near incision, severe pain, pus or drainage from incision site, or problems with your breasts. Patient Instructions: Antibiotic Form Stand Alone Forms: General Discharge Information Follow-up/Referrals: Renae Steele MD [Physician] - Discharge Medications: New oxycodone-acetaminophen 5-325 mg Tablet 1 - 2 tablet PO Q4-6H PRN (Reason: Pain Rated 4-6) Qty: 30 RF: 0 Continued prenat.vits,kevin,isn-ugho-defjk Tablet 1 tablet PO DAILY RF: 0 ferrous sulfate 325 mg (65 mg iron) tablet 325 mg PO DAILY Qty: 90 RF: 0 Date of admission: 01/07/21 04:29 Primary Care Provider: PHYSICIAN,CLINIC COORDINATOR Admitting Provider: Renae Steele Attending physician on admission: Renae Steele Condition: Stable
[2021-01-10] MEDS: POLYSACCHARIDE IRON COMPLEX 150 MG CAPSULE PO (10:21)
[2021-01-10] MEDS: MULTIVIT/MIN/PREN/FOL AC/IRON TABLET 1 TAB PO (10:21)
[2021-01-10] MEDS: DOCUSATE SODIUM 100 MG CAPSULE PO (10:22)
[2021-01-13 13:36] VITALS: BP 136/88; PULSE 84; RESP 20; TEMP 36.9; O2SAT 100
== END 2021-01-10 10:38 | disposition home or self-care (01) | DRG 540 ==
LOC: ANHLDR 05:13 → ANHOB2 13:08
PROVIDERS: Admitting Provider Student in an Organized Health Care Education/Training Program; Visit Provider Student in an Organized Health Care Education/Training Program
PROC: 10D00Z1 Extraction of Products of Conception, Low, Open Approach (ICD-10-PCS; CPT 59514; principal; 2021-01-07 09:00)
DX: O34.211 Maternal care for low transverse scar from previous cesarean delivery (principal); O99.324 Drug use complicating childbirth; F12.90 Cannabis use, unspecified, uncomplicated; O77.0 Labor and delivery complicated by meconium in amniotic fluid; Z3A.38 38 weeks gestation of pregnancy; Z37.0 Single live birth
CPT/HCPCS: 36415; 80307; 84112; 85025; 86592; 86850; 86900; 86901; A9270; C1765; J0131; J0690; J1200; J1885; J2274; J2405; J2590; J7120

== ENCOUNTER 2021-01-21 15:31 | Observation (INO) | payer OTHER, SELFPAY ==
[2021-01-21] VITALS (27 sets, daily range): BP systolic 111–177; BP diastolic 66–128; PULSE 70–96; TEMP 36.7
[2021-01-21 16:14] LABS: Basophils Absolute Auto 0.1 K/mm3 (0.0-0.1); Basophils Percent Auto 0.5 % (0.2-1.2); Eosinophils Absolute Auto 0.4 K/mm3 (0-0.3); Eosinophils Percent Auto 3.8 % (0-4.4); Hematocrit 33.8 % (37.0-47.0); Hemoglobin 9.9 g/dL (12.0-15.0); Immature Granulocyte Absolute 0.05 K/mm3 (0.00-0.031); Immature Granulocyte Percent A 0.5 % (0-0.5); Lymphocytes Absolute Auto 2.62 K/mm3 (0.9-3.2); Lymphocytes Percent Auto 25.4 % (18.3-44.2); Mean Corpuscular HGB Conc 29.3 g/dl (32-36); Mean Corpuscular Hemoglobin 22.3 pg (26-34); Mean Corpuscular Volume 76.1 fl (80-100); Monocytes Absolute Auto 0.9 K/mm3 (0.1-0.6); Monocytes Percent Auto 8.3 % (2.6-8.5); Neutrophils Absolute Auto 6.3 K/mm3 (1.3-6.7); Neutrophils Percent Auto 61.5 % (45.5-73.1); Platelet Count Result 546 k/mm3 (150-375); Red Blood Count 4.44 M/mm3 (4.2-5.4); Red Cell Distribution Width 17.7 % (11.5-14.5); White Blood Count 10.3 K/mm3 (4.5-10.0)
[2021-01-21 16:24] LABS: Creatinine Urine 173.5 mg/dL; Total Protein Urine Random 18 mg/dL
[2021-01-21 16:27] LABS: Lactate Dehydrogenase 676 U/L (313-618)
[2021-01-21 16:29] LABS: Alanine Aminotransferase 13 U/L (4-35); Albumin Level 3.8 g/dL (3.5-5.1); Alkaline Phosphatase 84 U/L (38-126); Anion Gap 5 mmol/L (8-16); Aspartate Amino Transferase 20 U/L (14-36); Bilirubin,Total 0.4 mg/dL (0.2-1.3); Blood Urea Nitrogen 11 mg/dL (7-17); Calcium 8.8 mg/dL (8.4-10.2); Carbon Dioxide 26 mmol/L (22-30); Chloride 109 mmol/L (98-107); Estimated Glomerular Filt Rate > 60; Glucose 92 mg/dL (65-110); Potassium 3.8 mmol/L (3.4-5.0); Sodium 140 mmol/L (137-145); Uric Acid 5.3 mg/dL (2.5-7.5)
[2021-01-21 16:33] LABS: Amphetamine Screen Urine Negative (Negative); Barbiturate Screen Urine Negative (Negative); Benzodiazepines Screen Urine Negative (Negative); Cannabinoid Screen Urine Positive (Negative); Cocaine Screen Urine Negative (Negative); Methadone Screen Urine Negative (Negative); Opiate Screen Urine Negative (Negative); Phencyclidine Screen Urine Negative (Negative)
--- NOTE | 2021-01-21 16:41 | PC.NURSE ---
called,orders received for procardia 60mg xl now for bp's.
[2021-01-21 16:42] LABS: Hypochromasia 1+ (NORMAL); Platelet Estimate Adequate (Adequate)
[2021-01-21 16:43] LABS: Anisocytosis 2+ (NORMAL)
[2021-01-21] MEDS: NIFEdipine 30 MG TAB.ER.24 60 MG PO (16:51)
--- NOTE | 2021-01-21 18:09 | PC.NURSE ---
called with elevated bp's, orders received for HCTZ 25mg po
[2021-01-21] MEDS: ACETAMINOPHEN 500 MG TABLET 1000 MG PO (18:36)
[2021-01-21] MEDS: hydroCHLOROthiazide 25 MG TABLET PO (18:53)
[2021-01-21] MEDS: NIFEdipine 10 MG CAPSULE PO (21:43)
[2021-01-22] VITALS (24 sets, daily range): BP systolic 90–137; BP diastolic 55–84; PULSE 78–108; RESP 14–16; TEMP 36.6–36.7; BMI 27.3
[2021-01-22] MEDS: ACETAMINOPHEN 500 MG TABLET 1000 MG PO (05:22)
[2021-01-22] MEDS: NIFEdipine 30 MG TAB.ER.24 60 MG PO (09:04)
--- NOTE | 2021-01-22 13:42 | PM.GYNPNOP ---
TNT POWDER WORKER - A/P Time Spent With Patient Time: Total time spent is greater than 50% in coordination of care (as documented) at patient's floor/unit and/or counseling patient: Time with patient: less than 15 minutes TNT POWDER WORKER- PN:Nura Post-Op Subjective Date/time seen: 01/22/21 13:42 Patient doing well. Seen at bedside this AM. Reported feeling better today. Sitting up in bed eating breakfast. Denies any headache, chest pain, SOB, N/V, visual disturbances, or abdominal pain. Yesterday, patient was started on Procardia XL 60mg. BP, however, was still elevated and patient was given Procardia IR 10mg x 1 dose as well as HCTZ 25mg x 1 dose. She was observed throughout the evening and this morning and BP has remained within normal limits. Decision made to discharge patient home in stable condition. Rx for Procardia XL 60mg QD and HCTZ 25mg QD sent to pharmacy along with Rx for BP cuff. Patient instructed to take BP at home twice per day and record in log. Advised to contact office for SBP >160 or DBP >110. Emergency precautions reviewed. F/U in office in 1 week for BP check. All questions and concerns addressed. TNT POWDER WORKER - PN: Obj Data Vital Signs Vital Signs: Vital Signs - 24 hr 01/21/21 15:50 01/21/21 16:01 01/21/21 16:15 Temperature Pulse Rate 86 89 81 Respiratory Rate Blood Pressure 162/99 H 158/84 H 160/128 H Blood Pressure [Right Arm] 01/21/21 16:19 01/21/21 16:26 01/21/21 16:31 Temperature 36.7 C Pulse Rate 75 76 Respiratory Rate Blood Pressure 152/94 H 156/91 H Blood Pressure [Right Arm] 01/21/21 16:46 01/21/21 17:00 01/21/21 17:31 Temperature Pulse Rate 73 77 87 Respiratory Rate Blood Pressure 156/94 H 163/93 H 154/102 H Blood Pressure [Right Arm] 01/21/21 17:56 01/21/21 18:00 01/21/21 18:31 Temperature Pulse Rate 75 82 Respiratory Rate Blood Pressure 169/102 H 154/92 H Blood Pressure [Right Arm] 162/99 H 01/21/21 19:00 01/21/21 19:31 01/21/21 20:01 Temperature Pulse Rate 81 79 75 Respiratory Rate Blood Pressure 175/95 H 161/100 H 156/96 H Blood Pressure [Right Arm] 01/21/21 20:31 01/21/21 20:46 01/21/21 21:01 Temperature Pulse Rate 75 74 73 Respiratory Rate Blood Pressure 177/95 H 175/96 H 158/87 H Blood Pressure [Right Arm] 01/21/21 21:31 01/21/21 21:44 01/21/21 21:51 Temperature Pulse Rate 70 70 82 Respiratory Rate Blood Pressure 173/97 H 161/93 H 151/102 H Blood Pressure [Right Arm] 01/21/21 22:01 01/21/21 22:21 01/21/21 22:41 Temperature Pulse Rate 72 77 77 Respiratory Rate Blood Pressure 155/96 H 151/93 H 131/74 Blood Pressure [Right Arm] 01/21/21 23:00 01/21/21 23:20 01/21/21 23:40 Temperature Pulse Rate 96 86 87 Respiratory Rate Blood Pressure 120/75 115/66 111/70 Blood Pressure [Right Arm] 01/22/21 00:01 01/22/21 00:21 01/22/21 00:40 Temperature Pulse Rate 99 78 80 Respiratory Rate Blood Pressure 121/80 111/63 117/69 Blood Pressure [Right Arm] 01/22/21 01:00 01/22/21 01:20 01/22/21 02:01 Temperature Pulse Rate 81 83 108 H Respiratory Rate Blood Pressure 120/75 111/65 118/72 Blood Pressure [Right Arm] 01/22/21 02:21 01/22/21 02:40 01/22/21 03:00 Temperature Pulse Rate 107 H 100 104 H Respiratory Rate Blood Pressure 120/71 111/64 113/72 Blood Pressure [Right Arm] 01/22/21 03:21 01/22/21 03:40 01/22/21 04:00 Temperature Pulse Rate 103 H 88 90 Respiratory Rate Blood Pressure 118/60 98/57 L 98/56 L Blood Pressure [Right Arm] 01/22/21 04:07 01/22/21 04:20 01/22/21 04:40 Temperature 36.7 C Pulse Rate 95 95 Respiratory Rate 16 Blood Pressure 101/63 112/71 Blood Pressure [Right Arm] 01/22/21 05:00 01/22/21 05:20 01/22/21 05:40 Temperature Pulse Rate 88 89 87 Respiratory Rate Blood Pressure 109/69 101/56 L 102/56 L Blood Pressure [Right Arm] 01/22/21 06:01 01/22/21 06:20 01/22/21 06:40 Temperature
--- NOTE | 2021-01-22 13:52 | PM.OBTRLD ---
OB - Triage/Final Diagnosis Visit Information Comments/Additional reasons for admission: I have assessed the risk for this patient, Carlos Arrington, and determined that she would benefit from observation care. Evaluation Laboratory results: Laboratory Tests 01/21/21 01/21/21 01/21/21 15:48 15:48 15:48 WBC 10.3 H RBC 4.44 Hgb 9.9 L Hct 33.8 L MCV 76.1 L MCH 22.3 L MCHC 29.3 L RDW 17.7 H Plt Count 546 H D MPV 9.0 Immature Gran % (Auto) 0.5 Neut % (Auto) 61.5 Lymph % (Auto) 25.4 [place] % (Auto) 8.3 Eos % (Auto) 3.8 Baso % (Auto) 0.5 Lymph # (Auto) 2.62 [place] # (Auto) 0.9 H Eos # (Auto) 0.4 H Baso # (Auto) 0.1 Abs Immat Gran (auto) 0.05 H Absolute Neuts (auto) 6.3 Absolute Nucleated RBC 0.0 Nucleated RBC % 0.0 Platelet Estimate Adequate Hypochromasia 1+ Anisocytosis 2+ Sodium 140 Potassium 3.8 Chloride 109 H Carbon Dioxide 26 Anion Gap 5 L BUN 11 Creatinine 0.80 Estim Creat Clear Calc Not Reportable Estimated GFR > 60 Glucose 92 Uric Acid 5.3 Calcium 8.8 Total Bilirubin 0.4 AST 20 ALT 13 Alkaline Phosphatase 84 Lactate Dehydrogenase Total Protein 7.0 Albumin 3.8 U Random Total Protein 18 Urine Creatinine 173.5 Protein/Creat Ratio 2 0.10 Urine Opiates Screen Urine Methadone Screen Ur Barbiturates Screen Ur Phencyclidine Scrn Ur Amphetamine Screen U Benzodiazepines Scrn Urine Cocaine Screen U Cannabinoids Screen 01/21/21 01/21/21 15:48 15:48 WBC RBC Hgb Hct MCV MCH MCHC RDW Plt Count MPV Immature Gran % (Auto) Neut % (Auto) Lymph % (Auto) [place] % (Auto) Eos % (Auto) Baso % (Auto) Lymph # (Auto) [place] # (Auto) Eos # (Auto) Baso # (Auto) Abs Immat Gran (auto) Absolute Neuts (auto) Absolute Nucleated RBC Nucleated RBC % Platelet Estimate Hypochromasia Anisocytosis Sodium Potassium Chloride Carbon Dioxide Anion Gap BUN Creatinine Estim Creat Clear Calc Estimated GFR Glucose Uric Acid Calcium Total Bilirubin AST ALT Alkaline Phosphatase Lactate Dehydrogenase 676 H Total Protein Albumin U Random Total Protein Urine Creatinine Protein/Creat Ratio 2 Urine Opiates Screen Negative Urine Methadone Screen Negative Ur Barbiturates Screen Negative Ur Phencyclidine Scrn Negative Ur Amphetamine Screen Negative U Benzodiazepines Scrn Negative Urine Cocaine Screen Negative U Cannabinoids Screen Positive A Vital signs: Vital Signs - 24 hr 01/21/21 15:50 01/21/21 16:01 01/21/21 16:15 Temperature Pulse Rate 86 89 81 Respiratory Rate Blood Pressure 162/99 H 158/84 H 160/128 H Blood Pressure [Right Arm] 01/21/21 16:19 01/21/21 16:26 01/21/21 16:31 Temperature 36.7 C Pulse Rate 75 76 Respiratory Rate Blood Pressure 152/94 H 156/91 H Blood Pressure [Right Arm] 01/21/21 16:46 01/21/21 17:00 01/21/21 17:31 Temperature Pulse Rate 73 77 87 Respiratory Rate Blood Pressure 156/94 H 163/93 H 154/102 H Blood Pressure [Right Arm] 01/21/21 17:56 01/21/21 18:00 01/21/21 18:31 Temperature Pulse Rate 75 82 Respiratory Rate Blood Pressure 169/102 H 154/92 H Blood Pressure [Right Arm] 162/99 H 01/21/21 19:00 01/21/21 19:31 01/21/21 20:01 Temperature Pulse Rate 81 79 75 Respiratory Rate Blood Pressure 175/95 H 161/100 H 156/96 H Blood Pressure [Right Arm] 01/21/21 20:31 01/21/21 20:46 01/21/21 21:01 Temperature Pulse Rate 75 74 73 Respiratory Rate Blood Pressure 177/95 H 175/96 H 158/87 H Blood Pressure [Right Arm] 01/21/21 21:31 01/21/21 21:44 01/21/21 21:51 Temperature Pulse Rate 70 70 82 Respiratory Rate Blood Pressure 173/97 H 161/93 H 151/102 H Blood Pressure [Right Arm] 01/21/21 22:01 01/21/21
== END 2021-01-22 13:00 | disposition home or self-care (01) ==
LOC: ANHOBOP 15:38 → ANHOBPP 15:48
PROVIDERS: Admitting Provider Student in an Organized Health Care Education/Training Program; Visit Provider Student in an Organized Health Care Education/Training Program
DX: O16.5 Unspecified maternal hypertension, complicating the puerperium (principal)
CPT/HCPCS: 36415; 80053; 80307; 82570; 83615; 84156; 84550; 85025; A9270; G0378; G0379

== ENCOUNTER 2025-01-24 17:54 | Emergency (ER) | payer OTHER, SELFPAY ==
--- OUTSIDE RECORDS SUMMARY | 2012-02-08 19:00 | XMS_ITS | Continuity of Care Document ---
Author Organization [facility] Address [address] [place] [address] Phone Care Team Providers Care Occ Therapy Asst Name Role Phone Unavailable Unavailable Unavailable Advance Directives Directive Yes / No Effective Date File Name No Information Encounters Encounter Description Practice Location Reason(s) For Visit Diagnoses Date Provider Providers Copied on Encounter [facility], [address] [facility], [place], [place], [id number], [place] tel:[phone] [facility] No Information 6201 2 No Information Referring Provider: MILTON AUGUSTE, [address] [place] [address],, [place], [address]. tel:[phone] Family History Family Member Type Diagnosis Age At Onset No Information Payers Payer name Insurance type Covered democrat ID Authoriza tistef(s) [facility] [id number] Social History Type Description Quantity Date Captured Comments Sex Female Smoking Status No Information Chief Complaint And Reason For Visit No Information History Of Present Illness Encounter Date Complaint History Of Prese nt Illness No Information Instructions Date Instruction Additional Infor mation No Information Assessments Type Assessment Date No Information
[2025-01-24] VITALS (18 sets, daily range): BP systolic 112–139; BP diastolic 60–111; PULSE 89–108; RESP 11–25; TEMP 38.1–39.2; O2SAT 95–100
--- NOTE | ~2025-01-24 | XR_ITS ---
EXAMINATION: XR chest 2V 01/24/2025 18:28 INDICATION: Chest pain PROCEDURE: 2 view chest COMPARISON: No prior studies for comparison. FINDINGS: The lungs are clear. The cardiomediastinal silhouette is within normal limits. There are no pleural effusions. There is no pneumothorax suspected. IMPRESSION: 1: NO ACUTE CARDIOPULMONARY DISEASE. Reviewed, dictated and finalized at location O.
--- NOTE | 2025-01-24 17:58 | ECG_ITS ---
Test Date: 2025-01-24 18:02:03 Measurements Intervals [place] Rate: 100 P: 65 DE: 147 QRS: 60 QRSD: 65 T: 39 QT: 299 QTc: 387 Interpretive Statements SINUS TACHYCARDIA DELAYED PRECORDIAL R/S TRANSITION BORDERLINE ECG No previous ECG available for comparison Electronically Signed On 01-24-2025 20:31:25 CDT by Masoud Pineda D.O.
[2025-01-24 18:26] LABS: Hematocrit 31.5 % (37.0-47.0); Hemoglobin 10.3 g/dL (12.0-15.0); Immature Granulocyte Percent A 0.5 % (0-0.5); Lymphocytes Absolute Auto 1.25 K/mm3 (0.9-3.2); Mean Corpuscular HGB Conc 32.7 g/dl (32-36); Mean Corpuscular Hemoglobin 26.6 pg (26-34); Mean Corpuscular Volume 81.4 fl (80-100); Nucleated Red Blood Cells Absolute Auto 0.000 K/mm3 (0.0-0.012); Nucleated Red Blood Cells Perc 0.0 % (0.0-0.2); Platelet Count Result 332 k/mm3 (150-375); Red Blood Count 3.87 M/mm3 (4.2-5.4); White Blood Count 18.2 K/mm3 (4.5-10.0)
[2025-01-24 18:42] LABS: Alanine Aminotransferase 24 U/L (6-35); Albumin Level 3.7 g/dL (3.5-5.1); Alkaline Phosphatase 46 U/L (38-126); Anion Gap 5 mmol/L (4-12); Aspartate Amino Transferase 35 U/L (14-36); Bilirubin,Total 0.3 mg/dL (0.2-1.3); Blood Urea Nitrogen 8 mg/dL (7-17); Calcium 8.8 mg/dL (8.4-10.2); Carbon Dioxide 24 mmol/L (22-30); Chloride 106 mmol/L (98-107); Estimated CRCL calculation 100 ml/min; Estimated Glomerular Filt Rate > 60; Glucose 90 mg/dL (65-110); Lipase 29 U/L (23-300); Potassium 3.9 mmol/L (3.4-5.0); Sodium 135 mmol/L (137-145); Total Protein 6.9 g/dL (6.3-8.2)
--- NOTE | 2025-01-24 18:43 | ED_ITS ---
HPI - Chest Pain General Chief Complaint: Chest Pain Stated Complaint: CP, nausea, chills, body aches Time Seen by Provider: 01/24/25 18:27 Related Data Home Medications ?Medication ?Instructions ?Recorded ?Confirmed ?Last Taken ?Type prenat.vits,kevin,[id number] 1 tablet PO DAILY 06/2401/22/21 12/29/20 History Allergies Allergy/AdvReac Type Severity Reaction Status Date / Time Penicillins Allergy Intermediate Swelling Verified 02/24/21 13:10 amoxicillin Allergy Unknown Rash Verified 02/24/21 13:10 PMF Past Medical History Medical History Asthma History of trichomoniasis Surgical History Surgical History Previous section x2 Family History Family History Father Hypertension Mother Hypertension Social History Social History Smoking status: Never smoker Alcohol intake: current Substance use: former Substance use type: marijuana Living arrangements: with family Gender identity (if verbalized by the patient): Female Spiritual care concerns: No Course Vital Signs Vital signs: Vital Signs Temperature 102.6 F H 01/24/25 17:59 Pulse Rate 104 H 01/24/25 17:59 Respiratory Rate 13 01/24/25 17:59 Blood Pressure 125/78 01/24/25 17:59 Pulse Oximetry 100 01/24/25 17:59 Temperature 102.6 F H 01/24/25 17:59 Pulse Rate 104 H 01/24/25 17:59 Respiratory Rate 13 01/24/25 17:59 Blood Pressure 125/78 01/24/25 17:59 Pulse Oximetry 100 01/24/25 17:59 MDM - Chest Pain Lab Data 01/24/25 18:21 01/24/25 18:21 Labs: Lab Results 01/24/25 Range/Units 18:21 WBC Pending RBC Pending Hgb Pending Hct Pending MCV Pending MCH Pending MCHC Pending RDW Pending Plt Count Pending MPV Pending Immature Gran % (Auto) Pending Neut % (Auto) Pending Lymph % (Auto) Pending [place] % (Auto) Pending Eos % (Auto) Pending Baso % (Auto) Pending Lymph # (Auto) Pending [place] # (Auto) Pending Eos # (Auto) Pending Baso # (Auto) Pending Abs Immat Gran (auto) Pending Absolute Neuts (auto) Pending Absolute Nucleated RBC Pending Nucleated RBC % Pending PT Pending INR Pending APTT Pending Sodium 135 L (137-145) mmol/L Potassium 3.9 (3.4-5.0) mmol/L Chloride 106 (98-107) mmol/L Carbon Dioxide 24 (22-30) mmol/L Anion Gap 5 (4-12) mmol/L BUN 8 (7-17) mg/dL Creatinine 0.50 L (0.7-1.0) mg/dL Estim Creat Clear Calc 100 ml/min Estimated GFR > 60 (59 - ) Glucose 90 (65-110) mg/dL Calcium 8.8 (8.4-10.2) mg/dL Total Bilirubin 0.3 (0.2-1.3) mg/dL AST 35 (14-36) U/L ALT 24 (6-35) U/L Alkaline Phosphatase 46 (38-126) U/L Troponin I Pending Total Protein 6.9 (6.3-8.2) g/dL Albumin 3.7 (3.5-5.1) g/dL Lipase 29 (23-300) U/L Discharge Plan Discharge Patient Language: Urdu Prescriptions: No Action nifedipine [Procardia XL] 60 mg tablet extended release 24hr 60 mg PO DAILY Qty: 30 0RF hydrochlorothiazide 25 mg tablet 25 mg PO DAILY Qty: 30 0RF (DME) blood pressure monitor Kit See Rx Instructions .Route Qty: 1 0RF Rx Instructions: As directed prenat.vits,kevin,[id number] Tablet 1 tablet PO DAILY ferrous sulfate 325 mg (65 mg iron) tablet 325 mg PO DAILY Qty: 90 0RF levonorgestrel [Plan B One-Step] 1.5 mg tablet 1.5 mg PO ONCE Qty: 1 0RF Rx Instructions: as a single dose Follow-up/Referrals: PHYSICIAN,COLLECTION SPECIALIST [Primary Care Provider, Internal Medicine]
--- NOTE | 2025-01-24 18:43 | ED.SKABFB ---
HPI - Skin/Abscess/Foreign Bdy General Chief complaint: Chest Pain Stated complaint: CP, nausea, chills, body aches Time Seen by Provider: 01/24/25 18:27 History of Present Illness HPI narrative: This is a 34-year-old female with history of asthma who presents to the ED for body aches, fevers, chills. Patient states that yesterday, she had abscess to her left maxillary gums that she drained herself. When she woke up this morning, she was having generalized body aches worse to the chest and abdomen. She went to work today but thinks that she overdosed herself. She was concerned that she may have sepsis. Has had nausea but no vomiting. Related Data Home Medications ?Medication ?Instructions ?Recorded ?Confirmed ?Last Taken ?Type prenat.vits,kevin,[id number] 1 tablet PO DAILY 06/24/20 01/22/21 12/29/20 History Allergies Allergy/AdvReac Type Severity Reaction Status Date / Time Penicillins Allergy Intermediate Swelling Verified 02/24/21 13:10 amoxicillin Allergy Unknown Rash Verified 02/24/21 13:10 Review of Systems Review of Systems: Gen.: As per HPI Eyes: Denies eye pain or visual change ENT: Denies congestion Respiratory: Denies shortness of breath or cough CV: As per HPI GI: As per HPI denies burning, urgency, frequency or hematuria Musculoskeletal: Denies back pain or muscle pain Neuro: Denies numbness, tingling, weakness or focal weakness Skin: Denies rash Except as documented, all other systems reviewed and negative PMFSH Past Medical History Medical History History of trichomoniasis Asthma Surgical History Surgical History Previous section x2 Family History Family History Father Hypertension Mother Hypertension Social History Social History Smoking status: Never smoker Alcohol intake: current Substance use: former Substance use type: marijuana Living arrangements: with family Gender identity (if verbalized by the patient): Female Spiritual care concerns: No Exam Narrative: APPEARANCE: No acute distress, nontoxic, resting in bed EYES: EOMI HEENT: Normocephalic, atraumatic, OMM RESPIRATORY: No respiratory distress Clear to auscultation bilaterally with no rhonchi wheezing or rales. CARDIOVASCULAR: Tachycardic, regular rhythm without murmurs rubs or gallops. ABDOMINAL: Soft, mild diffuse tenderness without rebound or guarding. MUSCULOSKELETAl: Moves all extremities. No clubbing, cyanosis or edema. NEURO: Awake and alert. Following commands, speech normal, no focal deficits SKIN:: Warm, dry. No rashes lesions or abrasions PSYCHIATRIC: Normal affect/mood, Course Vital Signs Vital signs: Vital Signs Temperature 102.6 F H 01/24/25 17:59 Pulse Rate 104 H 01/24/25 17:59 Respiratory Rate 13 01/24/25 17:59 Blood Pressure 125/78 01/24/25 17:59 Pulse Oximetry 100 01/24/25 17:59 Temperature 100.5 F H 01/24/25 19:46 Pulse Rate 89 01/24/25 21:45 Respiratory Rate 21 H 01/24/25 21:45 Blood Pressure 112/60 01/24/25 19:17 Pulse Oximetry 100 01/24/25 19:00 MDM - Skin/Abscess/Foreign Bdy MDM Narrative Medical decision making narrative: 34-year-old female that presented to the ED for diffuse body aches and a left maxillary dental abscess that drained on its own. Initial evaluation, patient was in no acute distress, nontoxic appearing, febrile to 102.6. Heart and lungs are clear. Suspect that she is having a generalized reaction related to her abscess. Chest x-ray showed no acute process. She had leukocytosis of 18.2. Mild anemia of 10.3. CMP without significant abnormalities. CRP elevated at 6.5. UA clear. Patient was given clindamycin and 2 L NS bolus. She is given Toradol and Tylenol with improvement of her symptoms. Patient will be given a prescription for clindamycin. She was given a referral to [facility] to establish care. Patient was agreeable to this plan. Given strict return precautions. Differential Diagnosis Differential diagnosis: Likely other (CAP, dental abscess, viral syndrome) Medical Records Attestation: I reviewed the patient's medical records. Lab Data Attestation: I reviewed the patient's lab results. 01/24/25 18:21 01/24/25 18:21 Labs: Lab Results 01/24/25 01/24/25 01/24/25 Range/Units 18:21 18:55 19:46 WBC 18.2 H (4.5-10.0) K/mm3 RBC 3.87 L (4.2-5.4) M/mm3 Hgb 10.3 L (12.0-15.0) g/dL Hct 31.5 L (37.0-47.0) % MCV 81.4 (80-100) fl MCH 26.6 (26-34) pg MCHC 32.7 (32-36) g/dl RDW 14.3 (11.5-14.5) % Plt Count 332 (150-375) k/mm3 MPV 9.1 (7.4-10.4) fl Immature Gran % (Auto) 0.5 (0-0.5) % Neut % (Auto) 86.3 H (45.5-73.1) % Lymph % (Auto) 6.9 L (18.3-44.2) % Griggs % (Auto) 5.8 (2.6-8.5) % Eos % (Auto) 0.4 (0-4.4) % Baso % (Auto) 0.1 L (0.2-1.2) % Lymph # (Auto) 1.25 (0.9-3.2) K/mm3 Griggs # (Auto) 1.1 H (0.1-0.6) K/mm3 Eos # (Auto) 0.1 (0-0.3) K/mm3 Baso # (Auto) 0.0 (0.0-0.1) K/mm3 Abs Immat Gran (auto) 0.09 H (0.00-0.031) K/mm3 Absolute Neuts (auto) 15.8 H (1.3-6.7) K/mm3 Absolute Nucleated RBC 0.000 (0.0-0.012) K/mm3 Nucleated RBC % 0.0 (0.0-0.2) % PT 14.0 (11.1-14.7) Seconds INR 1.1 APTT 29.5 (22.3-36.8) Seconds Sodium 135 L (137-145) mmol/L Potassium 3.9 (3.4-5.0) mmol/L Chloride 106 (98-107) mmol/L Carbon Dioxide 24 (22-30) mmol/L Anion Gap 5 (4-12) mmol/L BUN 8 (7-17) mg/dL Creatinine 0.50 L (0.7-1.0) mg/dL Estim Creat Clear Calc 100 ml/min Estimated GFR > 60 (59 - ) Glucose 90 (65-110) mg/dL Lactic Acid 1.2 (0.7-2.0) mmol/L Calcium 8.8 (8.4-10.2) mg/dL Total Bilirubin 0.3 (0.2-1.3) mg/dL AST 35 (14-36) U/L ALT 24 (6-35) U/L Alkaline Phosphatase 46 (38-126) U/L Troponin I < 0.012 (0.000-0.034) ng/mL C-Reactive Protein 6.5 H (<1.0) mg/dL Total Protein 6.9 (6.3-8.2) g/dL Albumin 3.7 (3.5-5.1) g/dL Lipase 29 (23-300) U/L Urine Color Yellow (Yellow) Urine Appearance Clear (Clear) Urine pH 8.0 (5.0-9.0) Ur Specific Sunshine 1.005 (1.001-1.035) Urine Protein Negative (Negative) mg/dL Urine Glucose (UA) Negative (Negative) mg/dL Urine Ketones Negative (Negative) mg/dL Ur Blood (Man) Negative (Negative) Urine Nitrate Negative (Negative) Urine Bilirubin Negative (Negative) Urine Urobilinogen 0.2 (<2.0) mg/dL Leukocyte Esterase Rfl Negative (Negative) PONCHO/UL POC Urine HCG, Qual (Negative) 01/24/25 Range/Units 19:57 WBC (4.5-10.0) K/mm3 RBC (4.2-5.4) M/mm3 Hgb (12.0-15.0) g/dL Hct (37.0-47.0) % MCV (80-100) fl MCH (26-34) pg MCHC (32-36) g/dl RDW (11.5-14.5) % Plt Count (150-375) k/mm3 MPV (7.4-10.4) fl Immature Gran % (Auto) (0-0.5) % Neut % (Auto) (45.5-73.1) % Lymph % (Auto) (18.3-44.2) % Griggs % (Auto) (2.6-8.5) % Eos % (Auto) (0-4.4) % Baso % (Auto) (0.2-1.2) % Lymph # (Auto) (0.9-3.2) K/mm3 Griggs # (Auto) (0.1-0.6) K/mm3 Eos # (Auto) (0-0.3) K/mm3 Baso # (Auto) (0.0-0.1) K/mm3 Abs Immat Gran (auto) (0.00-0.031) K/mm3 Absolute Neuts (auto) (1.3-6.7) K/mm3 Absolute Nucleated RBC (0.0-0.012) K/mm3 Nucleated RBC % (0.0-0.2) % PT (11.1-14.7) Seconds INR APTT (22.3-36.8) Seconds Sodium (137-145) mmol/L Potassium (3.4-5.0) mmol/L Chloride (98-107) mmol/L Carbon Dioxide (22-30) mmol/L Anion Gap (4-12) mmol/L BUN (7-17) mg/dL Creatinine (0.7-1.0) mg/dL Estim Creat Clear Calc ml/min Estimated GFR (59 - ) Glucose (65-110) mg/dL Lactic Acid (0.7-2.0) mmol/L Calcium (8.4-10.2) mg/dL Total Bilirubin (0.2-1.3) mg/dL AST (14-36) U/L ALT (6-35) U/L Alkaline Phosphatase (38-126) U/L Troponin I (0.000-0.034) ng/mL C-Reactive Protein (<1.0) mg/dL Total Protein (6.3-8.2) g/dL Albumin (3.5-5.1) g/dL Lipase (23-300) U/L Urine Color (Yellow) Urine Appearance (Clear) Urine pH (5.0-9.0) Ur Specific Sunshine (1.001-1.035) Urine Protein (Negative) mg/dL Urine Glucose (UA) (Negative) mg/dL Urine Ketones (Negative) mg/dL Ur Blood (Man) (Negative) Urine Nitrate (Negative) Urine Bilirubin (Negative) Urine Urobilinogen (<2.0) mg/dL Leukocyte Esterase Rfl (Negative) PONCHO/UL POC Urine HCG, Qual Negative (Negative) Imaging Data Radiologist's impression: Impressions Chest X-Ray 01/24/25 18:30 IMPRESSION: 1: NO ACUTE CARDIOPULMONARY DISEASE. ECG Data EKG #1: ECG completion date: 01/24/25 ECG completion time: 18:02 Prior ECG tracings: not available for review Interpretation: Sinus tachycardia rate of 100, normal axis, normal intervals, no acute ST or T-wave changes Discharge Plan Discharge Clinical Impression: Abscess, dental Patient Disposition: Home Condition: Stable Instructions: Antibiotic Form, Dental Abscess (ED) Additional Instructions: Take clindamycin as prescribed. Follow up with [place] primary care to establish care. For pain, discomfort or temperature greater than or equal to 100.8 ?F please alternate the following 2 medications as needed. First medication- acetaminophen/Tylenol- 1000mg every 6-8 hours as needed for above indications. Second medication- ibuprofen/Motrin-600mg every 6-8 hours as needed for above indication. Return to ED for any new or worsening symptoms. Patient Language: Ukrainian Prescriptions: New clindamycin HCl [Cleocin HCl] 150 mg capsule 450 mg PO Q12H 7 Days Qty: 42 0RF No Action nifedipine [Procardia XL] 60 mg tablet extended release 24hr 60 mg PO DAILY Qty: 30 0RF hydrochlorothiazide 25 mg tablet 25 mg PO DAILY Qty: 30 0RF (DME) blood pressure monitor Kit See Rx Instructions .Route Qty: 1 0RF Rx Instructions: As directed prenat.vits,kevin,[id number] Tablet 1 tablet PO DAILY ferrous sulfate 325 mg (65 mg iron) tablet 325 mg PO DAILY Qty: 90 0RF levonorgestrel [Plan B One-Step] 1.5 mg tablet 1.5 mg PO ONCE Qty: 1 0RF Rx Instructions: as a single dose Follow-up/Referrals: PHYSICIAN,REVIEW SCHEDULING COORDINATOR [Primary Care Provider, Internal Medicine] Toi Mustafa MD [Physician, Family Practice] Stand Alone Forms: Work/School Release IP
--- OUTSIDE RECORDS SUMMARY | 2025-01-24 18:44 | XMS_ITS | Clinical Summary ---
Author Organization [facility] Address [address] [place] [id number] Care Team Providers Care Commercial Sewing Instructor Name Role Phone None, Provider MD Primary Care Provider Unavaila ble Allergies Active Allergy Reactions Criticality Noted Date Comments Penicillins Swelling 01/05/2018 Medications hydrocodone-acetami nophen 5-325 MG tablet Take 1 tablet by mouth every 6 (six) hours as needed. 20 tablet 8 Active ondansetron (ZOFRAN-ODT) 4 MG disintegrating tablet Take 1 tablet (4 mg total) by mouth every 8 (eight) hours as needed. 20 tablet 4 Active Active Problems No known active problems Social History Tobacco Use Types Packs/Day Years Used Date Smoking Tobacco: Never Smokeless Tobacco: Never Alcohol Use Standard Drinks/Week Comments No 0 (1 standard drink = 0.6 oz pur e alcohol) Comments No Sex and Gender Information Value Date Recorded Sex Assigned at Not on file Legal Sex Female 6:11 PM CDT Gender Identity Not on file Sexual Orientation Not on file Last Filed Vital Signs Vital Sign Reading Time Taken Comments Blood Pressure 135/106 10/11/2023 5:20 AM CDT Pulse 86 10/11/2023 5:20 AM CDT Temperature 36.8 C (98.3 F) 01/05/2018 12:26 PM CDT Respiratory Rate 24 10/11/2023 5:20 AM CDT Oxygen Saturation 99% 10/11/2023 5:20 AM CDT Inhaled Oxygen Concentration - - Weight 52.6 kg (116 lb) 10/11/2023 5:20 AM CDT Height 154.9 cm (5' 1) 10/11/2023 5:20 AM CDT Body Mass Index 21.92 10/11/2023 5:20 AM CDT Plan of Treatment Health Maintenance Due Date Last Done Comments Cervical Cancer Screening Pa p Smear (Age 30 to 64) Every 3 Years 1990 Annual Physical 1993 Hepatitis C 2008 DTaP, Tdap and Td Vaccines ( 1 - Tdap) 2009 Hepatitis B Vaccines (1 of 3 - 19+ 3-dose series) 2009 HPV Vaccines (1 - 3-dose SCD M series) 2017 Cervical Cancer Screening Pa p with HPV Testing (Age 30 to 64) Every 5 Years 2020 Cervical Cancer Screening with HPV 2020 COVID-19 Vaccine (2023-2 5 season) 2024 Meningococcal B Vaccine Aged Out No l onger eligible based on patient's age to complete this topic Meningococcal Vaccine Aged Out No rosita sagar eligible based on patient's age to complete this topic Pneumococcal Vaccine: Pediat rics (0 to 5 Years) and At-Risk Patients (6 to 49 Years) Aged Out No longer eligible b ased on patient's age to complete this topic RSV Immunizations Under 20 Months Aged Out No longer eligible based on patient's age to complete [place] [address] STAPLES Care Teams Commercial Sewing Instructor Relationship Specialty Start Date End Date None, Provider, MD PCP - General UNKNOWN PHYSICIAN SPECIALTY 10/11/23
--- OUTSIDE RECORDS SUMMARY | 2025-01-24 18:44 | XMS_ITS | Clinical Summary ---
Author Organization [facility] Address [address] [place] [id number] Care Team Providers Care Double Needle Operator Lockstitch Name Role Phone No, Physician Primary Care Provider [phone] Allergies Active Allergy Reactions Criticality Noted Date Comments Amoxicillin Rash Medium 03/14/2021 Penicillins Rash,Swelling Medium 01/05/2018 Rash Rash Medications lidocaine (ASPERCREME) 4 % adhesive patch,medicated Place 1 patch on the skin daily as needed (Pain) 15 patch 03/14/2021 Active acetaminophen (TYLENOL) 500 mg tabletIndicatio ns:Pain Take 1-2 tablets (500-1,000 mg total) by mouth every 6 (six) hours as needed for pain (1 tablet for mild to moderate pain. 2 tablets for severe pain) 30 tablet 03/14/2021 Active Social History Tobacco Use Types Packs/Day Years Used Date Smoking Tobacco: Never Smokeless Tobacco: Never Personal Safety Answer Date Recorded Have you ever been in or are you currently in a harmful physical or emotional relationship or is someone making you feel afraid or unsafe? 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 Gender Identity Not on file Sexual Orientation Not on file Obstetrics History Last Filed Vital Signs Vital Sign Reading Time Taken Comments Blood Pressure 117/82 12/06/2023 2:00 PM CDT Pulse 89 12/06/2023 2:00 PM CDT Temperature 36.7 C (98 F) 12/06/2023 12:30 PM CDT Respiratory Rate 16 12/06/2023 2:00 PM CDT Oxygen Saturation 100% 12/06/2023 2:00 PM CDT Inhaled Oxygen Concentration - - Weight 49.9 kg (110 lb) 12/06/2023 12:30 PM CDT Height 156 cm (5' 1.42) 12/06/2023 12:30 PM CDT Body Mass Index 20.5 12/06/2023 12:30 PM CDT Plan of Treatment Health Maintenance Due Date Last Done Comments Cervical Cancer Screening 1990 Depression Screening 1990 Hepatitis C Screening 1990 Varicella Vaccines (1 of 2 - 13+ 2-dose series) 11/18/2003 DTaP/Tdap/Td Vaccine (6 - Tdap) 10/20/2005 10/19/2005, 01/02/2001, 10/04/1995, Additional history exists Regular Well Visit/Exam 18-64 2008 HPV Vaccines (2 - 3-dose series) 12/09/2008 11/12/19 09, 1990 Pneumococcal vaccine <65 (1 of 2 - PCV) 2009 Influenza Vaccine (#1) 2025 Hepatitis B Screening Completed 05/28/1991 , 1990, 1990 Insurance [facility] Care Teams Double Needle Operator Lockstitch Relationship Specialty Start Date End Date No, Physician PCP - General 01/16/21
[2025-01-24 18:49] LABS: Troponin I < 0.012 ng/mL (0.000-0.034)
[2025-01-24 18:51] LABS: INR 1.1; Partial Thromboplastin Time 29.5 Seconds (22.3-36.8); Prothrombin Time 14.0 Seconds (11.1-14.7)
[2025-01-24 19:07] LABS: CRP 6.5 mg/dL (<1.0)
[2025-01-24] MEDS: KETOROLAC 15 MG/ML VIAL (*BKC) IV PUSH (19:08)
[2025-01-24] MEDS: SODIUM CHLORIDE 0.9% IV 1,000 ML 999 ML IV CONT ×2 (19:09)
[2025-01-24] MEDS: ASPIRIN 81 MG CHEWABLE TABLET 324 MG PO (19:10)
[2025-01-24] MEDS: SODIUM CHLORIDE 0.9% IV 700 ML 999 ML IV CONT (19:10)
[2025-01-24] MEDS: ACETAMINOPHEN 500 MG TABLET 1000 MG PO (19:55)
[2025-01-24 19:58] LABS: Add Urine Microscopic? NO; Appearance Urine Clear (Clear); Glucose Urine UA Negative (Negative); Leukocyte Esterase Ur Negative LEU/UL (Negative); Nitrate Urine Negative (Negative); Specific Grav Ur 1.005 (1.001-1.035)
[2025-01-24 19:59] LABS: BEDSIDEPREGUCG Negative (Negative)
[2025-01-24] MEDS: CLINDAMYCIN 600 MG/D5W 50 ML 600 MG/50 ML PIGGYBACK 100 MG IVPB (20:25)
== END 2025-01-24 22:10 | disposition home or self-care (01) ==
PROVIDERS: Emergency Provider Student in an Organized Health Care Education/Training Program
DX: K04.7 Periapical abscess without sinus (principal); J45.909 Unspecified asthma, uncomplicated; R00.0 Tachycardia, unspecified
CPT/HCPCS: 36415; 71046; 80053; 81003; 81025; 83605; 83690; 84484; 85025; 85610; 85730; 86140; 87040; 93005; 96361; 96365; 96375; 99284; A9270; J1885; J7030